=== PATIENT | male | born 1985 | race African-American/Black ===

== ENCOUNTER 2018-08-20 18:21 | Emergency (ER) | payer SELFPAY ==
[~2018-08-20] VITALS: Ht 185.4 cm; Wt 204.5 kg
[2018-08-20] MEDS ORDERED: CHLORTHALID25 MG PO (18:36)
[2018-08-20] MEDS ORDERED: DOXYCYCL HYC100 MG PO (18:59)
[2018-08-20 19:30] VITALS: BP 158/90
== END 2018-08-20 19:30 | disposition home or self-care (01) | DRG 728 ==
LOC: ED 18:21
DX: A51.0 Primary genital syphilis (principal); I10 Essential (primary) hypertension; B95.62 Methicillin resistant Staphylococcus aureus infection as the cause of diseases classified elsewhere
CPT/HCPCS: J0561

== ENCOUNTER 2018-08-31 10:47 | Emergency (ER) | payer SELFPAY ==
[~2018-08-31] VITALS: Ht 185.4 cm; Wt 204.5 kg
[~2018-08-31 10:47] MED LIST: CHLORTHALID25 MG PO; DOXYCYCL HYC100 MG PO
[2018-08-31] MEDS ORDERED: ZOFRAN4 MG/TAB PO (11:32)
[2018-08-31 11:53] VITALS: BP 175/106
== END 2018-08-31 12:00 | disposition home or self-care (01) | DRG 392 ==
LOC: ED 10:47
DX: R11.0 Nausea (principal); I10 Essential (primary) hypertension; A51.0 Primary genital syphilis; Z86.14 Personal history of Methicillin resistant Staphylococcus aureus infection

== ENCOUNTER 2018-10-25 10:22 | Emergency (ER) | payer SELFPAY ==
[~2018-10-25] VITALS: Ht 185.4 cm; Wt 195.0 kg
[~2018-10-25 10:22] MED LIST changes: +ZOFRAN4 MG/TAB PO
[2018-10-25] MEDS ORDERED: PERMETHRIN5 % EX (11:22)
[2018-10-25] MEDS ORDERED: ALL DAY10 MG PO (11:22)
[2018-10-25] MEDS ORDERED: STROMECTOL3 MG PO (11:36)
[2018-10-25 11:57] VITALS: BP 152/97
== END 2018-10-25 11:57 | disposition home or self-care (01) | DRG 607 ==
LOC: ED 10:22
DX: B86 Scabies (principal); L29.9 Pruritus, unspecified

== ENCOUNTER 2020-03-15 12:35 | Emergency (ER) | payer OTHER ==
[~2020-03-15] VITALS: Ht 185.4 cm; Wt 209.0 kg
[~2020-03-15 12:35] MED LIST changes: +ALL DAY10 MG PO; +PERMETHRIN5 % EX; +STROMECTOL3 MG PO
[2020-03-15] MEDS ORDERED: IBUPROFEN600 MG PO (13:23)
[2020-03-15 13:26] VITALS: BP 173/89
== END 2020-03-15 13:34 | disposition home or self-care (01) | DRG 556 ==
LOC: ED 12:35
DX: M79.662 Pain in left lower leg (principal); I10 Essential (primary) hypertension; V49.40XA Driver injured in collision with unspecified motor vehicles in traffic accident, initial encounter

== ENCOUNTER 2020-03-20 09:47 | Emergency (ER) | payer OTHER ==
[~2020-03-20] VITALS: Ht 185.4 cm; Wt 209.1 kg
[~2020-03-20 09:47] MED LIST changes: +IBUPROFEN600 MG PO
[2020-03-20 11:09] LABS: IMMATURE GRANULOCYTES 0.2 % (0.0-5.0); MEAN CELL VOLUME 77.6 fL CALC (80.0-100.0); MEAN CORPUSCULAR HGB 25.3 pG CALC (26.0-32.0); MEAN CORPUSCULAR HGB CONC 32.6 g/dL CAL (32.0-36.0); NEUT# 6.25 thou/uL (1.82-7.42); RED BLOOD COUNT 4.86 mill/uL (4.70-6.10); RED CELL DISTRI WIDTH 15.4 % (11.5-15.5)
[2020-03-20 11:10] LABS: HEMATOCRIT 37.7 % (39.0-50.0); HEMOGLOBIN 12.3 g/dl (14.0-18.0)
[2020-03-20 11:21] LABS: ANION GAP 10 (6-22 (CALC)); BUN 10 mg/dL (9-20); BUN/CREATININE RATIO 9 (12-20 (CALC)); CARBON DIOXIDE 32 mmol/l (22-30); CHLORIDE 100 mmol/l (95-108); GFR > 60 ML/MIN (>=60 (CALC)); GFR FOR AFR.AMER. > 60 ML/MIN (>=60 (CALC)); POTASSIUM 3.8 mmol/l (3.5-5.1); SODIUM 138 mmol/l (137-146)
[2020-03-20] MEDS ORDERED: CYCLOBENZAPR5 MG PO ×3 (11:27→11:56)
[2020-03-20 11:47] VITALS: BP 151/79
== END 2020-03-20 11:59 | disposition home or self-care (01) | DRG 556 ==
LOC: ED 09:47
PROVIDERS: Family Medicine
DX: M25.562 Pain in left knee (principal); M25.511 Pain in right shoulder; I10 Essential (primary) hypertension; V49.40XA Driver injured in collision with unspecified motor vehicles in traffic accident, initial encounter